=== PATIENT | female | born 1955 | race Native Hawaiian/Other Pacific Islander ===

== ENCOUNTER 2021-12-11 13:54 | Outpatient (CLI) | payer OTHER | END 2021-12-11 20:13 | disposition home or self-care (01) | LOC: CT 13:54 | PROVIDERS: ATTEND Internal Medicine Sleep Medicine | DX: Z09 Encounter for follow-up examination after completed treatment for conditions other than malignant neoplasm (principal); Z87.891 Personal history of nicotine dependence ==